=== PATIENT | female | born 1955 | race Native Hawaiian/Other Pacific Islander ===

== ENCOUNTER 2019-01-24 13:52 | Outpatient (CLI) | payer BC, OTHER | END 2019-01-24 13:55 | disposition short-term general hospital (02) | LOC: AMB 13:52 | DX: M25.572 Pain in left ankle and joints of left foot (principal); M25.472 Effusion, left ankle; V49.50XA Passenger injured in collision with unspecified motor vehicles in traffic accident, initial encounter; Y92.413 State road as the place of occurrence of the external cause | CPT/HCPCS: A0425; A0429 ==

== ENCOUNTER 2019-01-24 13:58 | Emergency (ER) | payer BC ==
[~2019-01-24] VITALS: Ht 167.6 cm; Wt 68.0 kg
[2019-01-24 15:03] LABS: PLATELET COUNT 238 K/uL (152-353)
[2019-01-24 15:12] LABS: POTASSIUM 3.8 mmol/L (3.6-5.2)
[2019-01-24 15:27] LABS: PARTIAL THROMBOPLASTIN TIME 26.9 SECONDS (24.5-33.6)
[2019-01-24 18:45] VITALS: TEMP 98.2
[2019-01-24 20:00] VITALS: BP 167/79
== END 2019-01-24 20:05 | disposition home or self-care (01) ==
LOC: ED 14:02
PROVIDERS: Hospitalist
PROC: 2W3RX1Z Immobilization of Left Lower Leg using Splint (ICD-10-PCS; principal; 2019-01-24)
DX: S82.65XA Nondisplaced fracture of lateral malleolus of left fibula, initial encounter for closed fracture (principal); S92.355A Nondisplaced fracture of fifth metatarsal bone, left foot, initial encounter for closed fracture; V89.2XXA Person injured in unspecified motor-vehicle accident, traffic, initial encounter
CPT/HCPCS: 80048; 85027; 85610; 85730; 93005; 96372; 99284; J1885

== ENCOUNTER 2020-11-15 21:23 | Emergency (ER) | payer BC ==
[~2020-11-15] VITALS: Ht 167.6 cm; Wt 68.0 kg
[2020-11-15 21:46] LABS: PLATELET COUNT 264 K/uL (152-353)
[2020-11-15 21:54] LABS: SODIUM 141 mmol/L (136-145)
[2020-11-15 22:28] LABS: PARTIAL THROMBOPLASTIN TIME 26.5 SECONDS (24.5-33.6)
[2020-11-15 22:40] VITALS: BP 139/77; TEMP 97.8
== END 2020-11-15 22:40 | disposition home or self-care (01) ==
LOC: ED 21:23
PROVIDERS: Family Medicine
DX: K21.9 Gastro-esophageal reflux disease without esophagitis (principal)
CPT/HCPCS: 36415; 80053; 82550; 82553; 84484; 85027; 85610; 85730; 93005; 99283